=== PATIENT | female | born 1955 | race Hispanic/Latino ===

== ENCOUNTER → 2018-08-16 | Outpatient (CLI) | payer MEDICARE, OTHER ==
[~2018-08-16] MED LIST: REGADENOSON 0.4 MG/5 ML PF SYG IVP SCH
== END | disposition home or self-care (01) ==
LOC: SHCH 15:19
PROVIDERS: ATTEND Internal Medicine Cardiovascular Disease
DX: I25.10 Atherosclerotic heart disease of native coronary artery without angina pectoris (principal); I10 Essential (primary) hypertension; R00.2 Palpitations
CPT/HCPCS: 93306

== ENCOUNTER → 2024-03-07 | Outpatient (CLI) | payer MEDICARE | END | disposition home or self-care (01) | LOC: SHCH 10:31 | PROVIDERS: ATTEND Internal Medicine Cardiovascular Disease | DX: I08.3 Combined rheumatic disorders of mitral, aortic and tricuspid valves (principal); I25.10 Atherosclerotic heart disease of native coronary artery without angina pectoris | CPT/HCPCS: 93306 ==

== ENCOUNTER → 2024-03-17 | Outpatient (CLI) | payer MEDICARE ==
[2024-03-17] MEDS: REGADENOSON 0.4 MG/5 ML PF SYG IVP ONE (10:42)
== END | disposition home or self-care (01) ==
LOC: SHCH 07:46
PROVIDERS: ATTEND Internal Medicine Cardiovascular Disease
DX: I25.10 Atherosclerotic heart disease of native coronary artery without angina pectoris (principal)
CPT/HCPCS: 78452; 96374; 93017; J2785; A9500 ×2

== ENCOUNTER → 2024-11-01 | Outpatient (CLI) | payer MEDICARE ==
--- NOTE | 2024-11-02 10:29 | HMCSR ---
APPROVED REPORT Laterality: Bilateral Indications I10 Doppler Spectral Velocity Analysis PSV / EDVPSV / EDV ECA (R) 69 / cm/sECA (L) 68 / cm/s dICA (R) 76 / 25 cm/sdICA (L) 63 / 20 cm/s Rajeev (R) 59 / 21 cm/smICA (L) 57 / 14 cm/s pICA (R) 61 / 13 cm/spICA (L) 45 / 11 cm/s dCCA (R) 42 / 12 cm/sdCCA (L) 43 / 9 cm/s mCCA (R) 58 / 11 cm/smCCA (L) 64 / 12 cm/s pCCA (R) 63 / 11 cm/spCCA (L) 118 / 22 cm/s Vert (R) 70 / cm/sVert (L) 36 / cm/s Subl. (R) 118 / cm/sSubl. (L) 99 / cm/s ICA/CCA 1.21ICA/CCA 0.53 Technologist Impression Minimal plaque noted in the bilateral carotids, without hemodynamic significance. Bilateral vertebral arteries appear antegrade. Conclusion Minimal plaque noted in the bilateral carotids, without hemodynamic significance. Bilateral vertebral arteries appear antegrade. Conclusion Minimal plaque noted in the bilateral carotids, without hemodynamic significance. Bilateral vertebral arteries appear antegrade.
== END | disposition home or self-care (01) ==
LOC: SHCH 14:40
PROVIDERS: ATTEND Internal Medicine Cardiovascular Disease
DX: I10 Essential (primary) hypertension (principal); I25.10 Atherosclerotic heart disease of native coronary artery without angina pectoris; K21.9 Gastro-esophageal reflux disease without esophagitis; M32.9 Systemic lupus erythematosus, unspecified; I69.993 Ataxia following unspecified cerebrovascular disease
CPT/HCPCS: 93880

== ENCOUNTER → 2024-11-14 | Outpatient (CLI) | payer MEDICARE ==
--- NOTE | 2024-11-16 06:48 | HMCSR ---
APPROVED REPORT EXAM: Two-dimensional and M-mode echocardiogram with Doppler and color Doppler. INDICATION ICD: i25.0 2D Dimensions RVDd4.1 cmLVEF(%)59.0 (>50%)LVED Vol(simp.)79.0 mL IVSd0.9 (0.7-1.1cm)FS(%)31 %LVES Vol(simp.)35.0 mL LVDd4.3 (3.8-5.6cm)LA (2D)3.8 (1.6-4.0cm)LVEF(%, simp.)56 % PWd0.9 (0.7-1.1cm)Ao Root(2D)2.7 (2.0-3.7cm)LA ESV INDEX (BP)35.82 mL/m2 LVDs3.0 (2.5-4.0cm)LVOT diam1.9 (1.8-2.4cm) IVC diam1.4 cm Aortic Valve AoV Vmax1.7 m/Amy Peak GR11.5 mmHgLVOT Vmax0.9 m/s AoV VTI0.4 mAo Mean GR6.5 mmHgLVOT VTI0.21 m ARIADNE (VMAX)1.4 cm2AVA (VTI) 1.4 cm2 Mitral Valve MV E Vmax81.6 cm/sDECEL Rqvt340 ms MV A Vmax58.6 cm/s E/A ratio1.4 MR Max PG61 mmHg TDI E/E' Ozclel48.1E/E' Jsuywyq12.0 Pulmonary Valve PV Vmax0.6 m/sPV VTI0.15 mPV Mean GR1 mmHg PV Peak GR1.5 mmHgPI End Riya. Jacob 0.7 cm/s Tricuspid Valve TR Vmax2.7 m/sRAP (EST) 3 aiEiFCHO60.0 mmHg TR Peak GR30.0 mmHg Left Ventricle Left ventricular cavity size is normal. There is normal LV segmental wall motion. There is normal lef t ventricular wall thickness. LVEF is 55-60%. No left ventricle thrombus noted on this study. Stage I I, diastolic dysfunction. Right Ventricle The right ventricle appears dilated. The right ventricular systolic function is normal. Atria The left atrium is mildly dilated. The right atrium is dilated. Aortic Valve Aortic valve is trileaflet. Aortic valve leaflets are thickened and calcified. Trace aortic regurgita tion. Calculated aortic valve area is 1.4 cm2 with maximum pressure gradient of 11.5 mmHg and mean pr essure gradient of 6.5 mmHg, consistent with mild aortic stenosis. Mitral Valve Mitral valve leaflets are sclerotic but open well. Mitral annular calcification is mild to moderate. Mitral regurgitation is mild. There is no mitral valve stenosis. Tricuspid Valve The tricuspid valve leaflets appear normal. There is moderate tricuspid regurgitation. Right ventricu lar systolic pressure is estimated at 30-40 mmHg. Pulmonic Valve The pulmonic valve leaflets appears normal. There is trace pulmonic valvular regurgitation. Great Vessels The aortic root is normal in size. The IVC is normal in size and collapses >50% with inspiration. Pericardium Trivial, loculated posterior pericardial effusion. Conclusion Left ventricular cavity size is normal. LVEF is 55-60%. Stage II, diastolic dysfunction. The right ventricle appears dilated. The left atrium is mildly dilated. The right atrium is dilated. Aortic valve is trileaflet. Aortic valve leaflets are thickened and calcified. Trace aortic regurgitation. Calculated aortic valve area is 1.4 cm2 with maximum pressure gradient of 11.5 mmHg and mean pressure gradient of 6.5 mmHg, consistent with mild aortic stenosis. Mitral valve leaflets are sclerotic but open well. Mitral annular calcification is mild to moderate. Mitral regurgitation is mild. There is moderate tricuspid regurgitation. Right ventricular systolic pressure is estimated at 30-40 mmHg. There is trace pulmonic valvular regurgitation. The aortic root is normal in size. The IVC is normal in size and collapses >50% with inspiration. The IVC is normal in size and collapses >50% with inspiration. Trivial, loculated posterior pericardial effusion.
== END | disposition home or self-care (01) ==
LOC: SHCH 14:09
PROVIDERS: ATTEND Internal Medicine Cardiovascular Disease
DX: I08.3 Combined rheumatic disorders of mitral, aortic and tricuspid valves (principal); I25.10 Atherosclerotic heart disease of native coronary artery without angina pectoris
CPT/HCPCS: 93306